=== PATIENT | male | born 1975 | race Caucasian/White ===

== ENCOUNTER 2016-12-03 16:00 | Inpatient (IN) | payer OTHER ==
--- NOTE | 2016-12-03 16:57 | ED PDOC ---
Arrival/HPI - General Chief Complaint: Lower Extremity Problem/Injury Time Seen by Provider: 12/03/16 16:01 Historian: Spouse - History of Present Illness Narrative History of Present Illness (Text): 12/03/16 16:54 Turkish speaking 41M w/no sig PMH evaluated for Left hip pain s/p fall. Pt was walking, slipped on water, hit his left hip on concrete. Pt unable to ambulate on limb, brought into ED by friend, via wheelchair. Pain is severe, constant, radiates to thigh. Denies trauma to other parts of his body, N/V/F/C, SOB, CP, WILSON, ab pain , other complaints. PMH: Denies PSH: R ankle sx All: NKDA SH: Denies tobacco, ETOH or illicit drug use PMD: None Past Medical History - Provider Review Nursing Documentation Reviewed: Yes - Infectious Disease Hx of Infectious Diseases: None - Psychiatric Hx Substance Use: No - Surgical History Hx Orthopedic Surgery: Yes - Anesthesia Hx Anesthesia Reactions: No Family/Social History - Physician Review Nursing Documentation Reviewed: Yes Family/Social History: No Known Family HX Smoking Status: Unknown If Ever Smoked Hx Alcohol Use: No Hx Substance Use: No Allergies/Home Meds Allergies/Adverse Reactions: Allergies No Known Allergies Allergy (Verified 12/03/16 16:46) Home Medications: Home Meds Medication Instructions Recorded Confirmed No Known Home Med 12/03/16 12/03/16 Review of Systems - Physician Review All systems were reviewed & negative as marked: Yes - Review of Systems Constitutional: Normal. absent: Fatigue Eyes: Normal. absent: Vision Changes ENT: Normal. absent: Sore Throat Respiratory: Normal Cardiovascular: Normal. absent: Chest Pain Gastrointestinal: Normal. absent: Abdominal Pain, Nausea, Vomiting Musculoskeletal: Normal. absent: Back Pain Skin: Normal. absent: Rash Neurological: Normal. absent: Headache Physical Exam Vital Signs Reviewed: Yes Vital Signs Temp Pulse Resp BP Pulse Ox 12/03/16 21:32 99.5 F 75 18 135/71 12/03/16 18:21 75 18 135/71 98 12/03/16 17:35 78 18 138/74 98 12/03/16 16:22 99.5 F 80 16 139/77 99 Temperature: Afebrile Pulse: Regular Respiratory Rate: Normal Appearance: Positive for: Non-Toxic, Uncomfortable Pain Distress: Moderate Mental Status: Positive for: Alert and Oriented X 3 - Systems Exam Head: Present: Atraumatic, Normocephalic Extroacular Muscles: Present: EOMI Mouth: Present: Moist Mucous Membranes Nose (External): Present: Atraumatic Neck: Present: Normal Range of Motion Respiratory/Chest: Present: Clear to Auscultation, Good Air Exchange. No: Respiratory Distress, Accessory Muscle Use Cardiovascular: Present: Regular Rate and Rhythm, Normal S1, S2. No: Murmurs Abdomen: Present: Normal Bowel Sounds. No: Tenderness, Distention, Peritoneal Signs Upper Extremity: Present: Normal Inspection. No: Cyanosis, Edema Lower Extremity: Present: Tenderness (over left greater trochanter), Neurovascularly Intact. No: Normal Inspection, Normal ROM (decreased Left leg passive raise due to pain), Swelling Neurological: Present: GCS=15, CN II-XII Intact, Speech Normal Skin: Present: Warm, Dry, Normal Color. No: Rashes Psychiatric: Present: Alert, Oriented x 3, Normal Insight, Normal Concentration Medical Decision Making ED Course and Treatment: 12/03/16 16:58 Pt seen/evaluated, will order pain medication, Left hip/pelvis x-ray for evaluation. 12/03/16 17:58 Pt w/L femoral neck fxr- will consult ortho. Call placed to Dr. Zamarripa. 12/03/16 20:03 Pt to be admitted to hospitalist team - medical billing specialist aware. 12/03/16 20:25 Dr. Zamarripa aware of pt, requesting CT of hip/pelvis. Imaging positive for L hip fracture. Plan for OR in AM with Dr. Zamarripa. 12/03/16 20:20 Spoke to family with Turkish speaking attending regarding the plan for admission & OR in AM as per Dr. Zamarripa. - Lab Interpretations Lab Results: 12/03/16 17:45 12/03/16 17:45 Lab Results 12/03/16 18:29: Blood Type AB POSITIVE, Antibody Screen Negative, BBK History Checked No verified bt 12/03/16 17:45: Sodium 138, Potassium 3.7, Chloride 99, Carbon Dioxide 28, Anion Gap 15, BUN 17, Creatinine 0.6 L, Est GFR ( Amer) > 60, Est GFR ( Non-Af Amer) > 60, Random Glucose 113 H, Calcium 9.2, Total Bilirubin 0.3, AST 34, ALT 33, Alkaline Phosphatase 63, Total Protein 7.0, Albumin 4.3, Globulin 2.8, Albumin/Globulin Ratio 1.5 12/03/16 17:45: PT 11.1, INR 1.03, APTT 25.1 12/03/16 17:45: WBC 10.3, RBC 4.57, Hgb 13.8 L, Hct 42.0, MCV 91.9, MCH 30.2, MCHC 32.9, RDW 12.7, Plt Count 187, MPV 11.8 H, Gran % 78.6 H, Lymph % (Auto) 14.3 L, [place] % (Auto) 6.4 H, Eos % (Auto) 0.5 L, Baso % (Auto) 0.2, Gran # 8.09 H, Lymph # 1.5, [place] # 0.7 H, Eos # 0.1, Baso # 0.02 - RAD Interpretation Radiology Orders: 12/03/16 16:51 HIP MIN 2V W/ PELVIS LT [RAD] Stat 12/03/16 18:37 HIP WITHOUT CONTRAST LEFT [CT] Stat 12/03/16 19:16 CXR [CHEST PORTABLE] [RAD] Stat - Medication Orders Current Medication Orders: Discontinued Medications Ketorolac Tromethamine (Toradol) 60 mg IM STAT STA Stop: 12/03/16 16:52 Last Admin: 12/03/16 17:00 Dose: 60 mg [facility] Pain Assessment Document 12/03/16 17:00 OCS (Rec: 12/03/16 17:21 [id number]) Pain Reassessment Is this a pain reassessment? Yes Sleep Is patient sleeping during reassessment? No Presence of Pain Presence of Pain Yes Pain Scale Used Pain Scale Used Numeric Location Left, Right or Bilateral Left Pain Location Body Site Hip Description Description Constant Intensity of Pain at present 10 Pain Behavior Moaning Guarding Irritability Withdrawal from Touch Rubbing Site Restlessness Facial Grimacing Aggravating Factors ADL's Changing Position IM Administration Charges Document 12/03/16 17:00 OCS (Rec: 12/03/16 17:21 [id number]) Injection Site MAR Injection Site Left Deltoid Charges for Administration # of IM Administrations 1 Re-Assess: MAR Pain Assessment Document 12/03/16 18:00 OCS (Rec: 12/03/16 18:40 OCS [facility] [id number][place] Pain Reassessment Is this a pain reassessment? Yes Sleep Is patient sleeping during reassessment? No Presence of Pain Presence of Pain Yes Pain Scale Used Pain Scale Used Numeric Location Left, Right or Bilateral Left Pain Location Body Site Hip Description Description Constant Pneumococcal Polyvalent Vaccine (Pneumovax 23 Vaccine) 0.5 ml IM .ONCE ONE Stop: 12/03/16 21:41 Disposition/Present on Arrival - Present on Arrival Any Indicators Present on Arrival: No History of DVT/PE: No History of Uncontrolled Diabetes: No Urinary Catheter: No History of Decub. Ulcer: No History Surgical Site Infection Following: None - Disposition Have Diagnosis and Disposition been Completed?: Yes Diagnosis: Fracture of femoral neck, left, closed Disposition: HOSPITALIZED Disposition Time: 20:03 Patient Plan: Admission Patient Problems: Current Active Problems Problem Status Onset Fracture of femoral neck, left, closed Acute Condition: FAIR
[2016-12-03 18:03] LABS: BASO # 0.02 K/mm3 (0.0-2.0); BASO % 0.2 % (0.0-3.0); EOS # 0.1 (0.0-0.7); EOS % 0.5 % (1.5-5.0); GRAN # 8.09 (1.4-6.5); GRAN % 78.6 % (50.0-68.0); LYMPH # 1.5 (1.2-3.4); LYMPH % 14.3 % (22.0-35.0); MEAN CELL VOLUME 91.9 fl (80.0-105.0); MEAN CORPUSCULAR HEMOGLOBIN 30.2 pg (25.0-35.0); MEAN CORPUSCULAR HGB CONC 32.9 g/dl (31.0-37.0); MEAN PLATELET VOLUME 11.8 fl (7.0-11.0); MONO # 0.7 (0.1-0.6); MONO % 6.4 % (1.0-6.0); RED CELL DISTRIBUTION WIDTH 12.7 % (11.5-14.5); WHITE BLOOD COUNT 10.3 10^3/ul (4.5-11.0)
[2016-12-03 18:15] LABS: ALB/GLOB RATIO 1.5 (1.1-1.8); ALKALINE PHOSPHATASE 63 U/L (38-126); ALT/SGPT 33 U/L (7-56); AST/SGOT 34 U/L (17-59); BILIRUBIN,TOTAL 0.3 mg/dL (0.2-1.3); BLOOD UREA NITROGEN 17 mg/dL (7-21); CALCIUM 9.2 mg/dL (8.4-10.5); CARBON DIOXIDE 28 mmol/L (21-33); CHLORIDE 99 mmol/L (98-107); GFR AFRICAN-AMERICAN > 60; GLUCOSE,RANDOM 113 mg/dL (70-110); POTASSIUM 3.7 mmol/L (3.6-5.0); SODIUM 138 mmol/L (132-148)
[2016-12-03 18:25] LABS: INR 1.03 (0.93-1.08); PARTIAL THROMBOPLASTIN TIME 25.1 Seconds (23.7-30.8)
--- NOTE | 2016-12-03 18:39 | RAD ---
PROCEDURE: Left Hip X-ray Radiographs. HISTORY: trauma COMPARISON: None. FINDINGS: BONES: Subcapital fracture proximal left femur. JOINTS: No evidence of subluxation or dislocation. SOFT TISSUES: Normal. OTHER FINDINGS: None. IMPRESSION: Acute subcapital fracture proximal left femur. No additional osseous, articular abnormalities identified. Please note: No preliminary report/ innterpretation of this examination provided by emergency department personnel.
--- NOTE | 2016-12-03 20:00 | CT ---
EXAM: CT Left Lower Extremity Without Intravenous Contrast, Hip EXAM DATE/TIME: 12/03/2016 6:37 PM CLINICAL HISTORY: The patient age is 41 years old and is male; Pain; Hip; Left; Additional info: Left hip fracture Facility exam id and description: Ct hipleft hip without contrast left TECHNIQUE: Axial computed tomography images of the left hip without intravenous contrast. All CT scans at this facility use one or more dose reduction techniques, viz.: automated exposure control; ma/kV adjustment per patient size (including targeted exams where dose is matched to indication; i.e. head); or iterative reconstruction technique. Coronal and sagittal reformatted images were created and reviewed. COMPARISON: DX - HIP W/WO PELVIS 2-3 VIEWS LT 12/03/2016 5:20:48 PM FINDINGS: Bones/joints: There is a fracture of the left femoral neck, with significant angulation of fracture fragments. No dislocation of the left hip joint. The remaining bones of the left hip are intact. There is narrowing of the left hip joint space, consistent with mild arthropathy. Soft tissues: There is soft tissue swelling lateral to the left hip. Vasculature: Calcifications are visualized within the left side of the pelvis, consistent with phleboliths. IMPRESSION: 1. There is a fracture of the left femoral neck, with significant angulation of fracture fragments. 2. There is soft tissue swelling lateral to the left hip.
[2016-12-03 21:40] VITALS: BMI 20.7
[2016-12-03] MEDS ORDERED: Pneumococcal 23-Valent Vaccine IM ONE (21:40)
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
[2016-12-03] MEDS ORDERED: Sodium Chloride 0.9% 1,000 ML IV SCH (23:15)
[2016-12-04 05:27] LABS: PH,URINE 6.5 (4.7-8.0); URINE BILIRUBIN NEGATIVE (NEGATIVE); URINE BLOOD TRACE-LYSED (NEGATIVE); URINE GLUCOSE (UA) NEGATIVE (NEGATIVE); URINE KETONE NEGATIVE (NEGATIVE); URINE LEUKOCYTE ESTERASE NEGATIVE Leu/uL (NEGATIVE); URINE PROTEIN NEGATIVE mg/dL (<30 mg/dL); URINE UROBILINOGEN 0.2 E.U./dL (<1 E.U./dL)
[2016-12-04] MEDS ORDERED: Bupivacaine 0.5% Inj(30mL) ONE (05:43)
[2016-12-04 05:45] LABS: URINE APPEARANCE CLEAR (CLEAR); URINE COLOR YELLOW (YELLOW)
[2016-12-04 05:49] LABS: URINE EPITHELIAL CELLS 0 - 2 /hpf (0-5); URINE WBC 0 - 2 /hpf (0-6)
[2016-12-04 06:06] LABS: HEMATOCRIT 42.6 % (42.0-52.0); MEAN CELL VOLUME 91.8 fl (80.0-105.0); MEAN CORPUSCULAR HEMOGLOBIN 30.2 pg (25.0-35.0); MEAN CORPUSCULAR HGB CONC 32.9 g/dl (31.0-37.0); MEAN PLATELET VOLUME 11.6 fl (7.0-11.0); RED CELL DISTRIBUTION WIDTH 12.9 % (11.5-14.5); WHITE BLOOD COUNT 7.4 10^3/ul (4.5-11.0)
[2016-12-04] MEDS ORDERED: Propofol 10 mg/ml Inj (20 ML) ONE (06:22)
[2016-12-04] MEDS ORDERED: Midazolam 2 MG/2 ML VIAL ONE (06:22)
[2016-12-04] MEDS ORDERED: Succinylcholine 200 mg/10 ml Inj IV ONE (06:22)
[2016-12-04 07:00] LABS: BLOOD UREA NITROGEN 12 mg/dL (7-21); CALCIUM 9.1 mg/dL (8.4-10.5); CARBON DIOXIDE 30 mmol/L (21-33); CHLORIDE 101 mmol/L (95-110); GFR AFRICAN-AMERICAN > 60; GLUCOSE,RANDOM 105 mg/dL (70-110); POTASSIUM 3.7 mmol/L (3.6-5.0); SODIUM 142 mmol/L (132-148)
[2016-12-04] MEDS ORDERED: Phenylephrine 10 mg/ml Inj ONE (07:40)
--- NOTE | 2016-12-04 08:08 | RAD ---
HISTORY: preop COMPARISON: No prior. FINDINGS: LUNGS: No active pulmonary disease. PLEURA: No significant pleural effusion identified, no pneumothorax apparent. CARDIOVASCULAR: Normal. OSSEOUS STRUCTURES: No significant abnormalities. VISUALIZED UPPER ABDOMEN: Normal. OTHER FINDINGS: None. IMPRESSION: No active disease.
[2016-12-04] MEDS ORDERED: Neostigmine Methylsulfate 3mg/3ml Syringe IV ONE (08:38)
--- NOTE | 2016-12-04 08:52 | PCM.SURG1 ---
Surgeon's Initial Post Op Note - Surgeon's Notes Surgeon: Sahra Zamarripa MD [place] Machine Operator: Victoria Pace [id number] Type of Anesthesia: General Endo Pre-Operative Diagnosis: Left hip displaced femoral neck fracture Operative Findings: Left hip displaced femoral neck fracture Post-Operative Diagnosis: Left hip displaced femoral neck fracture Operation Performed: Left hip femoral neck fracture closed reduction and internal fixation w/ 3 cannulated screws Specimen/Specimens Removed: specimen= none. complications= none. Implants= 3x cannulated partially threaded cancellous 7.3 mm screws measuring: inferior-100mm , superior anterior - 95mm, superior posterior - 100mm (all short thread) Estimated Blood Loss: EBL {In ML}: 10 Blood Products Given: N/A Drains Used: No Drains Post-Op Condition: Good Date of Surgery/Procedure: 12/04/16 Time of Surgery/Procedure: 08:52
[2016-12-04] MEDS ORDERED: HYDROmorphone 0.5 mg/0.5 ml ISec IVP PRN (08:56)
[2016-12-04] MEDS ORDERED: Lactated Ringer's 1,000 ML IV SCH (09:00)
--- NOTE | 2016-12-04 09:01 | RAD ---
PROCEDURE: Fluoroscopy up to 1 hour HISTORY: OR COMPARISON: TECHNIQUE: Fluoroscopy was provided in the operating room. Eight images were submitted FINDINGS: The study shows placement of 3 pins through a subcapital fracture of the left hip. IMPRESSION: As above
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
[2016-12-04] MEDS ORDERED: Oxycodone/Acetaminophen 5/325 mg Tab PO PRN (09:21)
[2016-12-04] MEDS ORDERED: HYDROmorphone 0.5 mg/0.5 ml ISec ONE (10:02)
--- NOTE | 2016-12-04 11:43 | CARD ---
APPROVED REPORT EKG Measurement Heart [id number] <Conclusion> Normal sinus rhythm Normal ECG
--- NOTE | 2016-12-04 12:05 | CP.PCM.PN ---
<Jose Guadalupe Worley - Last Filed: 12/04/16 16:00> Subjective - Date & Time of Evaluation Date of Evaluation: 12/04/16 Time of Evaluation: 11:00 - Subjective Subjective: Medicine Note Pt S&E at bedside L. Fem ORIF. Pt speaks Setswana. able to communicate of some pain in the left hip. Objective - Vital Signs/Intake and Output Vital Signs (last 24 hours): Temp Pulse Resp BP Pulse Ox 98.0 F 73 16 106/67 100 12/04/16 10:22 12/04/16 10:37 12/04/16 10:37 12/04/16 10:37 12/04/16 10:37 Intake and Output: 12/04/16 12/04/16 06:59 18:59 Intake Total 450 Balance 450 - Medications Medications: Current Medications Acetaminophen (Tylenol 325mg Tab) 650 mg PO Q4 PRN PRN Reason: Pain, Mild (1-3) Hydromorphone HCl (Dilaudid) 0.5 mg IVP Q4H PRN PRN Reason: Pain, severe (8-10) Metoclopramide HCl (Reglan) 10 mg IV ONCE PRN PRN Reason: Nausea/Vomiting Oxycodone/Acetaminophen (Percocet 5/325 Mg Tab) 2 tab PO Q4H PRN PRN Reason: Pain, severe (8-10) Stop: 12/07/16 09:22 Pantoprazole Sodium (Protonix Inj) 40 mg IVP DAILY FREDA Last Admin: 12/04/16 11:24 Dose: 40 mg - Labs Labs: 12/04/16 05:30 12/04/16 05:30 PT 11.1 Seconds (9.9-11.8) 12/03/16 17:45 INR 1.03 (0.93-1.08) 12/03/16 17:45 APTT 25.1 Seconds (23.7-30.8) 12/03/16 17:45 - Constitutional Appears: Non-toxic, No Acute Distress - Head Exam Head Exam: ATRAUMATIC - Eye Exam Eye Exam: EOMI. absent: Scleral icterus - ENT Exam ENT Exam: Mucous Membranes Moist - Respiratory Exam Respiratory Exam: NORMAL BREATHING PATTERN. absent: Accessory Muscle Use, Chest Wall Tenderness - Cardiovascular Exam Cardiovascular Exam: +S1, +S2. absent: Bradycardia, Tachycardia - GI/Abdominal Exam GI & Abdominal Exam: Soft. absent: Distended, Tenderness - Extremities Exam Additional comments: +2 pedal pulses B/L Left hip dressing C/D/I ice pack in place - Neurological Exam Neurological Exam: Alert, Awake - Skin Skin Exam: Normal Color, Warm Assessment and Plan - Assessment and Plan (Free Text) Assessment: 41 M w/ mechanical fall on left hip, S/P ORIF (pinning/screw fixation) of left hip Left Hip Fx s/p ORIF ORTHO: Dr. Zamarripa Pain control w/ Dilaudid Physical Therapy Consult AM Labs PPX PTX Lovenox Ancef q8 for 24hr post op (SCIP) Jose Guadalupe Worley PGY1 <Tara Pierre - Last Filed: 12/04/16 16:42> Objective - Vital Signs/Intake and Output Vital Signs (last 24 hours): Temp Pulse Resp BP Pulse Ox 98.0 F 73 16 106/67 100 12/04/16 10:22 12/04/16 10:37 12/04/16 10:37 12/04/16 10:37 12/04/16 10:37 Intake and Output: 12/04/16 12/04/16 06:59 18:59 Intake Total 450 Balance 450 - Medications Medications: Current Medications Acetaminophen (Tylenol 325mg Tab) 650 mg PO Q4 PRN PRN Reason: Pain, Mild (1-3) Enoxaparin Sodium (Lovenox) 40 mg SC DAILY FREDA PRN Reason: Protocol Hydromorphone HCl (Dilaudid) 0.5 mg IVP Q4H PRN PRN Reason: Pain, severe (8-10) Cefazolin Sodium (Ancef 1gm In Ns) 1 gm in 100 mls @ 100 mls/hr IVPB Q8 FREDA Stop: 12/05/16 14:59 Metoclopramide HCl (Reglan) 10 mg IV ONCE PRN PRN Reason: Nausea/Vomiting Oxycodone/Acetaminophen (Percocet 5/325 Mg Tab) 2 tab PO Q4H PRN PRN Reason: Pain, severe (8-10) Stop: 12/07/16 09:22 Pantoprazole Sodium (Protonix Inj) 40 mg IVP DAILY [facility] Last Admin: 12/04/16 11:24 Dose: 40 mg - Labs Labs: 12/04/16 05:30 12/04/16 05:30 PT 11.1 Seconds (9.9-11.8) 12/03/16 17:45 INR 1.03 (0.93-1.08) 12/03/16 17:45 APTT 25.1 Seconds (23.7-30.8) 12/03/16 17:45 Attending/Attestation - Attestation I have personally seen and examined this patient.: Yes I have fully participated in the care of the patient.: Yes I have reviewed all pertinent clinical information, including history, physical exam and plan: Yes Notes (Text): 12/04/16 16:40 41 year old male admitted with left pain pain after mechanical fall. He was found to have left femoral neck fracture. Orthopedics evaluation was appreciated and patient is s/p ORIF. Continue with analgesics for pain control and PT evaluation. Tara Pierre MD Hospitalist.
[2016-12-04] MEDS: HYDROmorphone 0.5 mg/0.5 ml ISec IVP PRN ×2 (17:14→23:52)
--- NOTE | 2016-12-04 20:48 | OP ---
PROCEDURE DATE: 12/04/2016 PREOPERATIVE DIAGNOSIS: Left hip displaced femoral neck fracture. POSTOPERATIVE DIAGNOSIS: Left hip displaced femoral neck fracture. PROCEDURE: Left hip displaced femoral neck fracture closed reduction and internal fixation with 3 cannulated screws. 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 ESTIMATED BLOOD LOSS: 10 mL. TYPE OF ANESTHESIA: General endotracheal anesthesia. DRAINS: None. COMPLICATIONS: None. SPECIMEN: None. IMPLANTS: Synthes cannulated partially threaded 7.3 mm cancellous screws, 3 in total measuring, 1. Inferior screw 100 mm 2. Superior anterior screw 95 mm 3. Superior posterior screw 100 mm, also I threaded them with washers. DISPOSITION: The patient was extubated and transferred back in stable condition and tolerated the procedure well. INDICATIONS FOR SURGERY: The patient is a 41-year-old male with no significant past medical history, who presents to the emergency room at [facility] on the evening of 12/03/2016 with left hip pain and inability to ambulate or bear weight on the left lower extremity for a few hours. The patient states that this is a work injury and he works at a [employer] locally. He slipped on water and landed on a concrete floor landing on his left hip while at work on 12/03/2016. He developed immediate 10/10 pain localized to the left hip and groin and was unable to tolerate any range of motion of the left hip or bear any weight on the left lower extremity. He was brought to the emergency room at [facility] by a friend in a wheelchair on 12/03/2016 in the evening. After evaluation by ER staff and review of imaging, he was diagnosed with a left hip displaced femoral neck fracture. Orthopedic consultation was placed and I started to manage the care of the patient remotely. I evaluated the patient as an inpatient and confirmed the above history in the quileute language of Yakut as he is Yakut speaking with no Cameroonian understanding or minimal Cameroonian understanding. He denied having any numbness or tingling in the left lower extremity or previous trauma to the left lower extremity or other musculoskeletal trauma after this fall, he denied LOC, he denied chest pain, shortness of breath, headache, nausea and vomiting, numbness and tingling, calf pain, weakness, or other musculoskeletal trauma. He was admitted to the Medical Service under the hospitalist and after adequate period of being n.p.o., he was taken to the OR for emergent closed reduction and internal fixation of the left hip displaced femoral neck fracture to preserve the left hip. He was indicated for left hip closed versus open reduction and internal fixation with 3 partially threaded cannulated screws. The risks, benefits, and alternatives of the procedure were discussed in length with the patient in his quileute language of Yakut for which I am fluent with the risk including not limited to infection, neurovascular damage, need for further surgery, failure of hardware, development of chronic pain and disability, development of blood clots including DVT and PE, need for conversion to a total hip replacement, screw pullout and breakthrough, inability to return to preinjury level of activity, anesthesia reactions including . After answering all of his questions, the patient stated that he understood the risks and wished to proceed with surgery. He was taken emergently to the OR in the neon molder of 12/04/2016 after an adequate period of being n.p.o. PROCEDURE IN DETAIL: The patient was identified in the preoperative holding area and the left hip was marked for surgery. Once again as described above, the risks, benefits, and alternatives of the procedure were discussed at length with the patient and informed consent was obtained. After brief discussion with the anesthesia staff, perioperative IV antibiotics and 2 g of Ancef were administered, the patient was taken to the operating room and placed on his bed. An initial timeout was done with the surgeon, anesthesia staff, and OR staff, all in agreement being operated on. General anesthesia was administered without difficulty or complications. The patient was then carefully transferred to the fracture table with all bony prominences and superficial neurovascular structures well padded. The left upper extremity was placed in well-padded egg crate padding and secured across his chest. The right upper extremity was placed on the armboard. The right lower extremity was placed in the Well-Leg mock and was well padded with egg crate padding on all superficial neurovascular structures. The left lower extremity was padded at the foot and ankle and secured to the traction boots. Fluoroscopic imaging was then brought to take prereduction AP and lateral biplanar imaging confirming the displaced femoral neck fracture on the left hip. A final timeout was done with the surgeon, anesthesia staff, and OR staff, being operated on. An attempt at a closed reduction was carried out that yielded satisfactory and acceptable anatomic reduction of the displaced femoral neck fracture after multiple maneuvers. Once it was confirmed, utilizing biplanar fluoroscopic imaging that our reduction of the femoral neck fracture was acceptable and a near anatomic reduction, the left hip was prepped and draped in standard sterile fashion. The anterior point for the cannulated screws was identified to be proximal to the level of the lesser trochanter to minimize the chance of iatrogenic fracture. We began with placement of the inferior screw. Using biplanar fluoroscopic imaging, the entry point for these screws were confirmed and a 3-cm incision was made at the skin, through the skin down subcutaneous tissue while maintaining good hemostasis down to level of the iliotibial fascia, which was sharply incised while access to the proximal lateral aspect of the femur. The inferior screw guide pin was placed center-center on the head through the lateral cortex along the inferior aspect of the femoral neck in good position, confirmed on biplanar fluoroscopic imaging. With the use of the gun barrel guide, the superior anterior and superior posterior pins were placed through the gun barrel guide. Measurements were taken while maintaining good tip-to-apex distance. The cannulated drill was advanced over the guidewires. Final screws were then placed. The inferior screw was a 7.3 mm cannulated partially threaded short thread cancellous screw measuring 100 mm, the superior anterior screw was the same measuring 95 mm, the superior posterior screw was the same measuring 100 mm, all screws were placed with washers. After final sequential tightening of the screws was carried out, final fluoroscopic imaging was taken confirming that the screws were in good position and good tip-to-apex distance was maintained with good compression strength maintained and good fixation strength maintained on the tactile testing with the screw medical driver. I was very happy with the construct and the bone purchase at that point in time. Final fluoroscopic images were taken and the wound was copiously irrigated. A #1 Vicryl suture was used for reapproximation of the iliotibial fascia, followed by 2.0 Vicryl suture for subcutaneous tissue followed by alvarado for skin. Sterile dressings were applied. The patient was then carefully transported back to his hospital bed where he was extubated successfully and transferred to PACU in stable condition and tolerated the procedure well. DISPOSITION: The patient will remain as an inpatient and work with physical therapy for at least 24 hours. He is young and healthy and will work with physical therapy to be initially toe touch weight bearing to the left lower extremity/nonweightbearing. He will be discharged once he is cleared by medical team. He will receive adequate pain control. He will be placed on Lovenox 40 mg subcutaneous once daily for at least 2 weeks starting postop day #1. He will follow up in my office at [facility] within 1 week after discharge. I will monitor his progress as an inpatient. Sahra Zamarripa MD
[2016-12-04] MEDS: ceFAZolin 1 gm in NS 1 GM/100 ML BAG IVPB SCH (22:45)
[2016-12-05] MEDS: ceFAZolin 1 gm in NS 1 GM/100 ML BAG IVPB SCH ×2 (05:57→14:46)
[2016-12-05 06:58] LABS: BASO # 0.01 K/mm3 (0.0-2.0); BASO % 0.1 % (0.0-3.0); EOS % 0.1 % (1.5-5.0); GRAN # 6.62 (1.4-6.5); GRAN % 66.3 % (50.0-68.0); HEMATOCRIT 41.1 % (42.0-52.0); LYMPH # 1.6 (1.2-3.4); LYMPH % 16.1 % (22.0-35.0); MEAN CELL VOLUME 91.9 fl (80.0-105.0); MEAN CORPUSCULAR HEMOGLOBIN 29.8 pg (25.0-35.0); MEAN CORPUSCULAR HGB CONC 32.4 g/dl (31.0-37.0); MEAN PLATELET VOLUME 11.6 fl (7.0-11.0); MONO # 1.7 (0.1-0.6); MONO % 17.4 % (1.0-6.0)
[2016-12-05 07:21] LABS: ALB/GLOB RATIO 1.4 (1.1-1.8); ALKALINE PHOSPHATASE 56 U/L (38-126); ALT/SGPT 31 U/L (7-56); AST/SGOT 37 U/L (17-59); BILIRUBIN,TOTAL 0.5 mg/dL (0.2-1.3); BLOOD UREA NITROGEN 9 mg/dL (7-21); CALCIUM 8.8 mg/dL (8.4-10.5); CARBON DIOXIDE 28 mmol/L (21-33); CHLORIDE 102 mmol/L (98-107); GFR AFRICAN-AMERICAN > 60; GLUCOSE,RANDOM 132 mg/dL (70-110); POTASSIUM 3.8 mmol/L (3.6-5.0); SODIUM 139 mmol/L (132-148); TOTAL PROTEIN 6.7 g/dL (5.8-8.3)
[2016-12-05] MEDS: Enoxaparin 40 mg Syringe SC SCH ×2 (09:12→11:55)
--- NOTE | 2016-12-05 13:49 | CP.PCM.PN ---
<Robert Pinto - Last Filed: 12/05/16 13:44> Subjective - Date & Time of Evaluation Date of Evaluation: 12/05/16 Time of Evaluation: 13:44 - Subjective Subjective: Pt seen and examined at bedside. Pt doing well overnight with no acute complaints. Pain is well controlled with medications. Denies CP, SOB, N/V/D, fever, chills. Objective - Vital Signs/Intake and Output Vital Signs (last 24 hours): Temp Pulse Resp BP Pulse Ox 99.9 F H 90 18 111/66 96 12/05/16 06:00 12/05/16 06:00 12/05/16 06:00 12/05/16 06:00 12/05/16 06:00 Intake and Output: 12/05/16 12/05/16 06:59 18:59 Intake Total 360 0 Output Total 800 Balance -440 0 - Medications Medications: Current Medications Acetaminophen (Tylenol 325mg Tab) 650 mg PO Q4 PRN PRN Reason: Pain, Mild (1-3) Enoxaparin Sodium (Lovenox) 40 mg SC DAILY [facility] PRN Reason: Protocol Last Admin: 12/05/16 11:55 Dose: Not Given Hydromorphone HCl (Dilaudid) 0.5 mg IVP Q4H PRN PRN Reason: Pain, severe (8-10) Last Admin: 12/04/16 23:52 Dose: 0.5 mg Cefazolin Sodium (Ancef 1gm In Ns) 1 gm in 100 mls @ 100 mls/hr IVPB Q8 [facility] Stop: 12/05/16 14:59 Last Admin: 12/05/16 05:57 Dose: 100 mls/hr Metoclopramide HCl (Reglan) 10 mg IV ONCE PRN PRN Reason: Nausea/Vomiting Oxycodone/Acetaminophen (Percocet 5/325 Mg Tab) 2 tab PO Q4H PRN PRN Reason: Pain, severe (8-10) Stop: 12/07/16 09:22 Pantoprazole Sodium (Protonix Inj) 40 mg IVP DAILY [facility] Last Admin: 12/05/16 09:14 Dose: 40 mg - Labs Labs: 12/05/16 06:51 12/05/16 06:51 PT 11.1 Seconds (9.9-11.8) 12/03/16 17:45 INR 1.03 (0.93-1.08) 12/03/16 17:45 APTT 25.1 Seconds (23.7-30.8) 12/03/16 17:45 - Constitutional Appears: Non-toxic, No Acute Distress - Head Exam Head Exam: ATRAUMATIC, NORMAL INSPECTION, NORMOCEPHALIC - ENT Exam ENT Exam: Mucous Membranes Moist, Normal Exam - Respiratory Exam Respiratory Exam: Clear to Ausculation Bilateral, NORMAL BREATHING PATTERN. absent: Rales, Rhonchi, Wheezes - Cardiovascular Exam Cardiovascular Exam: RRR, +S1, +S2 - GI/Abdominal Exam GI & Abdominal Exam: Soft, Normal Bowel Sounds. absent: Tenderness - Extremities Exam Extremities Exam: absent: Calf Tenderness, Pedal Edema Additional comments: Left hip surgical site bandaged. Clean, dry, and intact. Mild edema noted. - Neurological Exam Neurological Exam: Alert, Awake, Oriented x3 - Psychiatric Exam Psychiatric exam: Normal Affect, Normal Mood - Skin Skin Exam: Intact, Normal Color, Warm Assessment and Plan - Assessment and Plan (Free Text) Plan: 41 y/o M with no PMH presents after mechanical fall and s/p ORIF of left hip. Pt maintained on pain medication and continue to work with physical therapy. 1. Left Hip fracture s/p ORIF Pain control with Dilaudid and percocet Tylenol for fever Reglan for nausea Physical Therapy 2. PPX Lovenox Protonix Blair, PGY-2 <Tara Pierre - Last Filed: 12/05/16 14:59> Objective - Vital Signs/Intake and Output Vital Signs (last 24 hours): Temp Pulse Resp BP Pulse Ox 99.9 F H 90 18 111/66 96 12/05/16 06:00 12/05/16 06:00 12/05/16 06:00 12/05/16 06:00 12/05/16 06:00 Intake and Output: 12/05/16 12/05/16 06:59 18:59 Intake Total 360 0 Output Total 800 Balance -440 0 - Medications Medications: Current Medications Acetaminophen (Tylenol 325mg Tab) 650 mg PO Q4 PRN PRN Reason: Pain, Mild (1-3) Enoxaparin Sodium (Lovenox) 40 mg SC DAILY [facility] PRN Reason: Protocol Last Admin: 12/05/16 11:55 Dose: Not Given Hydromorphone HCl (Dilaudid) 0.5 mg IVP Q4H PRN PRN Reason: Pain, severe (8-10) Last Admin: 12/05/16 14:47 Dose: 0.5 mg Cefazolin Sodium (Ancef 1gm In Ns) 1 gm in 100 mls @ 100 mls/hr IVPB Q8 [facility] Stop: 12/05/16 14:59 Last Admin: 12/05/16 14:46 Dose: 100 mls/hr Metoclopramide HCl (Reglan) 10 mg IV ONCE PRN PRN Reason: Nausea/Vomiting Oxycodone/Acetaminophen (Percocet 5/325 Mg Tab) 2 tab PO Q4H PRN PRN Reason: Pain, severe (8-10) Stop: 12/07/16 09:22 Pantoprazole Sodium (Protonix Inj) 40 mg IVP DAILY [facility] Last Admin: 12/05/16 09:14 Dose: 40 mg - Labs Labs: 12/05/16 06:51 12/05/16 06:51 PT 11.1 Seconds (9.9-11.8) 12/03/16 17:45 INR 1.03 (0.93-1.08) 12/03/16 17:45 APTT 25.1 Seconds (23.7-30.8) 12/03/16 17:45 Attending/Attestation - Attestation I have personally seen and examined this patient.: Yes I have fully participated in the care of the patient.: Yes I have reviewed all pertinent clinical information, including history, physical exam and plan: Yes Notes (Text): 12/05/16 14:58 41 year old male admitted with left pain pain after mechanical fall. He was found to have left femoral neck fracture. He was see by orthopedics and is s/p ORIF POD #1. Continue with analgesics for pain control. Continue with physical therapy; currently recommending HwS. Case was discussed with therapeutic case manager and social studies department chair today. Tara Pierre MD Hospitalist.
[2016-12-05] MEDS: HYDROmorphone 0.5 mg/0.5 ml ISec IVP PRN (14:47)
[2016-12-06 07:03] LABS: BASO # 0.02 K/mm3 (0.0-2.0); BASO % 0.2 % (0.0-3.0); EOS % 0.4 % (1.5-5.0); GRAN # 6.75 (1.4-6.5); GRAN % 70.8 % (50.0-68.0); HEMATOCRIT 41.7 % (42.0-52.0); LYMPH # 1.4 (1.2-3.4); LYMPH % 14.7 % (22.0-35.0); MEAN CELL VOLUME 91.6 fl (80.0-105.0); MEAN CORPUSCULAR HEMOGLOBIN 29.5 pg (25.0-35.0); MEAN CORPUSCULAR HGB CONC 32.1 g/dl (31.0-37.0); MEAN PLATELET VOLUME 11.6 fl (7.0-11.0); MONO # 1.3 (0.1-0.6); MONO % 13.9 % (1.0-6.0); RED CELL DISTRIBUTION WIDTH 12.9 % (11.5-14.5); WHITE BLOOD COUNT 9.5 10^3/ul (4.5-11.0)
[2016-12-06 07:44] LABS: ALB/GLOB RATIO 1.3 (1.1-1.8); ALKALINE PHOSPHATASE 52 U/L (38-126); ALT/SGPT 27 U/L (7-56); AST/SGOT 35 U/L (17-59); BILIRUBIN,TOTAL 0.6 mg/dL (0.2-1.3); BLOOD UREA NITROGEN 11 mg/dL (7-21); CALCIUM 9.3 mg/dL (8.4-10.5); CARBON DIOXIDE 31 mmol/L (21-33); CHLORIDE 100 mmol/L (98-107); GFR AFRICAN-AMERICAN > 60; GLUCOSE,RANDOM 147 mg/dL (70-110); POTASSIUM 4.1 mmol/L (3.6-5.0); SODIUM 140 mmol/L (132-148)
[2016-12-06] MEDS: Enoxaparin 40 mg Syringe SC SCH (09:47)
--- NOTE | 2016-12-06 12:25 | CP.PCM.PN ---
<Jose Guadalupe Worley - Last Filed: 12/06/16 12:21> Subjective - Date & Time of Evaluation Date of Evaluation: 12/06/16 Time of Evaluation: 09:30 - Subjective Subjective: Medicine Note Patient S&E at bedside at AM. No acute events overnight. Pain is well controlled. +OOB w/ Physical therapy. Dressing C/D/I. Denies F/C CP SOB N/V/D Objective - Vital Signs/Intake and Output Vital Signs (last 24 hours): Temp Pulse Resp BP Pulse Ox 99 F 86 18 117/76 98 12/06/16 08:36 12/06/16 08:36 12/06/16 08:36 12/06/16 08:36 12/06/16 08:36 Intake and Output: 12/06/16 12/06/16 06:59 18:59 Intake Total 550 Output Total 800 Balance -250 - Medications Medications: Current Medications Acetaminophen (Tylenol 325mg Tab) 650 mg PO Q4 PRN PRN Reason: Pain, Mild (1-3) Enoxaparin Sodium (Lovenox) 40 mg SC DAILY [facility] PRN Reason: Protocol Last Admin: 12/06/16 09:47 Dose: 40 mg Hydromorphone HCl (Dilaudid) 0.5 mg IVP Q4H PRN PRN Reason: Pain, severe (8-10) Last Admin: 12/05/16 14:47 Dose: 0.5 mg Metoclopramide HCl (Reglan) 10 mg IV ONCE PRN PRN Reason: Nausea/Vomiting Oxycodone/Acetaminophen (Percocet 5/325 Mg Tab) 2 tab PO Q4H PRN PRN Reason: Pain, severe (8-10) Stop: 12/07/16 09:22 Pantoprazole Sodium (Protonix Inj) 40 mg IVP DAILY [facility] Last Admin: 12/06/16 09:48 Dose: 40 mg - Labs Labs: 12/06/16 06:40 12/06/16 06:40 PT 11.1 Seconds (9.9-11.8) 12/03/16 17:45 INR 1.03 (0.93-1.08) 12/03/16 17:45 APTT 25.1 Seconds (23.7-30.8) 12/03/16 17:45 - Constitutional Appears: Non-toxic, No Acute Distress - Head Exam Head Exam: ATRAUMATIC - Eye Exam Eye Exam: EOMI. absent: Scleral icterus - ENT Exam ENT Exam: Mucous Membranes Moist - Respiratory Exam Respiratory Exam: NORMAL BREATHING PATTERN. absent: Accessory Muscle Use, Respiratory Distress - Cardiovascular Exam Cardiovascular Exam: +S1, +S2. absent: Bradycardia, Tachycardia - GI/Abdominal Exam GI & Abdominal Exam: Soft, Normal Bowel Sounds. absent: Distended, Tenderness, Rebound - Extremities Exam Extremities Exam: absent: Calf Tenderness Additional comments: Left Hip dressing C/D/i - Neurological Exam Neurological Exam: Alert, Awake, Oriented x3 - Skin Skin Exam: Normal Color, Warm Assessment and Plan - Assessment and Plan (Free Text) Assessment: 41 y/o M with no PMH presents after mechanical fall and s/p ORIF of left hip POD #2. Pt maintained on pain medication and continue to work with physical therapy. Left Hip fracture s/p ORIF Pain control with Dilaudid and percocet Tylenol for fever Reglan for nausea c/w Physical Therapy- Focus to be weight bearing and ambulate up steps PPX Lovenox Protonix Jose Guadalupe Worley PGY1 <Tara Pierre - Last Filed: 12/06/16 14:57> Objective - Vital Signs/Intake and Output Vital Signs (last 24 hours): Temp Pulse Resp BP Pulse Ox 99 F 86 18 117/76 98 12/06/16 08:36 12/06/16 08:36 12/06/16 08:36 12/06/16 08:36 12/06/16 08:36 Intake and Output: 12/06/16 12/06/16 06:59 18:59 Intake Total 550 Output Total 800 Balance -250 - Medications Medications: Current Medications Acetaminophen (Tylenol 325mg Tab) 650 mg PO Q4 PRN PRN Reason: Pain, Mild (1-3) Enoxaparin Sodium (Lovenox) 40 mg SC DAILY [facility] PRN Reason: Protocol Last Admin: 12/06/16 09:47 Dose: 40 mg Hydromorphone HCl (Dilaudid) 0.5 mg IVP Q4H PRN PRN Reason: Pain, severe (8-10) Last Admin: 12/05/16 14:47 Dose: 0.5 mg Metoclopramide HCl (Reglan) 10 mg IV ONCE PRN PRN Reason: Nausea/Vomiting Oxycodone/Acetaminophen (Percocet 5/325 Mg Tab) 2 tab PO Q4H PRN PRN Reason: Pain, severe (8-10) Stop: 12/07/16 09:22 Last Admin: 12/06/16 14:06 Dose: 2 tab Pantoprazole Sodium (Protonix Inj) 40 mg IVP DAILY [facility] Last Admin: 12/06/16 09:48 Dose: 40 mg - Labs Labs: 12/06/16 06:40 12/06/16 06:40 PT 11.1 Seconds (9.9-11.8) 12/03/16 17:45 INR 1.03 (0.93-1.08) 12/03/16 17:45 APTT 25.1 Seconds (23.7-30.8) 12/03/16 17:45 Attending/Attestation - Attestation I have personally seen and examined this patient.: Yes I have fully participated in the care of the patient.: Yes I have reviewed all pertinent clinical information, including history, physical exam and plan: Yes Notes (Text): 12/06/16 14:56 41 year old male admitted with left pain pain after mechanical fall. He was found to have left femoral neck fracture on CT scan. He was seen by orthopedics and is s/p ORIF POD #2. Continue with analgesics for pain control. Continue with physical therapy and stairs training for d/c planning. Tara Pierre MD Hospitalist.
[2016-12-07] MEDS: Pantoprazole 40 mg EC Tab PO SCH (06:00)
[2016-12-07 06:57] LABS: BASO # 0.01 K/mm3 (0.0-2.0); BASO % 0.1 % (0.0-3.0); EOS # 0.2 (0.0-0.7); EOS % 2.6 % (1.5-5.0); GRAN # 4.43 (1.4-6.5); GRAN % 58.6 % (50.0-68.0); HEMATOCRIT 41.7 % (42.0-52.0); LYMPH # 2.1 (1.2-3.4); LYMPH % 28.1 % (22.0-35.0); MEAN CELL VOLUME 91.6 fl (80.0-105.0); MEAN CORPUSCULAR HEMOGLOBIN 30.1 pg (25.0-35.0); MEAN CORPUSCULAR HGB CONC 32.9 g/dl (31.0-37.0); MEAN PLATELET VOLUME 11.9 fl (7.0-11.0); MONO # 0.8 (0.1-0.6); MONO % 10.6 % (1.0-6.0); RED CELL DISTRIBUTION WIDTH 12.7 % (11.5-14.5); WHITE BLOOD COUNT 7.6 10^3/ul (4.5-11.0)
[2016-12-07 07:24] LABS: ALB/GLOB RATIO 1.2 (1.1-1.8); ALKALINE PHOSPHATASE 53 U/L (38-126); ALT/SGPT 57 U/L (7-56); AST/SGOT 44 U/L (17-59); BILIRUBIN,TOTAL 0.5 mg/dL (0.2-1.3); BLOOD UREA NITROGEN 13 mg/dL (7-21); CALCIUM 9.3 mg/dL (8.4-10.5); CARBON DIOXIDE 32 mmol/L (21-33); CHLORIDE 98 mmol/L (98-107); GFR AFRICAN-AMERICAN > 60; GLUCOSE,RANDOM 119 mg/dL (70-110); POTASSIUM 3.8 mmol/L (3.6-5.0); SODIUM 140 mmol/L (132-148); TOTAL PROTEIN 7.1 g/dL (5.8-8.3)
[2016-12-07] MEDS: Enoxaparin 40 mg Syringe SC SCH (09:34)
[2016-12-07] MEDS ORDERED: Oxycodone/Acetaminophen 5/325 mg Tab PO PRN (11:47)
--- NOTE | 2016-12-07 16:23 | CP.PCM.PN ---
<Jose Guadalupe Worley - Last Filed: 12/07/16 16:25> Subjective - Date & Time of Evaluation Date of Evaluation: 12/07/16 Time of Evaluation: 10:30 - Subjective Subjective: Medicine Progress note Pt S&E at bedside this AM. No acute events overnight. During encounter pt was OOB into chair. Pt complaining of continued pain in his Left hip. Minimal weight bearing. Physical therapy actively working with patient. Denies F/C CP/ SOB N/V/D Objective - Vital Signs/Intake and Output Vital Signs (last 24 hours): Temp Pulse Resp BP Pulse Ox 99.2 F 81 20 124/79 100 12/07/16 08:27 12/07/16 08:27 12/07/16 08:27 12/07/16 08:27 12/07/16 08:27 Intake and Output: 12/07/16 12/07/16 06:59 18:59 Intake Total 360 1080 Output Total 600 1300 Balance -240 -220 - Medications Medications: Current Medications Acetaminophen (Tylenol 325mg Tab) 650 mg PO Q4 PRN PRN Reason: Pain, Mild (1-3) Enoxaparin Sodium (Lovenox) 40 mg SC DAILY [facility] PRN Reason: Protocol Last Admin: 12/07/16 09:34 Dose: 40 mg Oxycodone/Acetaminophen (Percocet 5/325 Mg Tab) 1 tab PO Q4H PRN PRN Reason: Pain, moderate (4-7) Stop: 12/10/16 11:48 Pantoprazole Sodium (Protonix Ec Tab) 40 mg PO 0600 [facility] - Labs Labs: 12/07/16 06:41 12/07/16 06:41 PT 11.1 Seconds (9.9-11.8) 12/03/16 17:45 INR 1.03 (0.93-1.08) 12/03/16 17:45 APTT 25.1 Seconds (23.7-30.8) 12/03/16 17:45 - Constitutional Appears: Non-toxic, No Acute Distress - Head Exam Head Exam: ATRAUMATIC, NORMAL INSPECTION - Eye Exam Eye Exam: EOMI. absent: Scleral icterus - ENT Exam ENT Exam: Mucous Membranes Moist - Respiratory Exam Respiratory Exam: NORMAL BREATHING PATTERN. absent: Accessory Muscle Use, Respiratory Distress - Cardiovascular Exam Cardiovascular Exam: +S1, +S2. absent: Bradycardia, Tachycardia - GI/Abdominal Exam GI & Abdominal Exam: Soft. absent: Tenderness - Extremities Exam Additional comments: +2 pulses b/L Left Hip Dressing C/D/I no strikethrough No pedal edema or swelling - Neurological Exam Neurological Exam: Alert, Awake, Oriented x3 - Psychiatric Exam Psychiatric exam: Flat Affect - Skin Skin Exam: Normal Color Assessment and Plan - Assessment and Plan (Free Text) Assessment: 41M w/ left femoral neck fracture post mechanical fall s/p Left Hip ORIF POD#3 Left Hip fracture s/p ORIF Pain control on percocet Tylenol for fever Reglan for nausea c/w Physical Therapy- Focus to be weight bearing and ambulate up steps Continue with PT over the weekend PPX Lovenox Protonix Jose Guadalupe Worley PGY1 <Tara Pierre A - Last Filed: 12/07/16 17:01> Objective - Vital Signs/Intake and Output Vital Signs (last 24 hours): Temp Pulse Resp BP Pulse Ox 99.2 F 81 20 124/79 100 12/07/16 08:27 12/07/16 08:27 12/07/16 08:27 12/07/16 08:27 12/07/16 08:27 Intake and Output: 12/07/16 12/07/16 06:59 18:59 Intake Total 360 1080 Output Total 600 1300 Balance -240 -220 - Medications Medications: Current Medications Acetaminophen (Tylenol 325mg Tab) 650 mg PO Q4 PRN PRN Reason: Pain, Mild (1-3) Enoxaparin Sodium (Lovenox) 40 mg SC DAILY [facility] PRN Reason: Protocol Last Admin: 12/07/16 09:34 Dose: 40 mg Oxycodone/Acetaminophen (Percocet 5/325 Mg Tab) 1 tab PO Q4H PRN PRN Reason: Pain, moderate (4-7) Stop: 12/10/16 11:48 Pantoprazole Sodium (Protonix Ec Tab) 40 mg PO 0600 [facility] - Labs Labs: 12/07/16 06:41 12/07/16 06:41 PT 11.1 Seconds (9.9-11.8) 12/03/16 17:45 INR 1.03 (0.93-1.08) 12/03/16 17:45 APTT 25.1 Seconds (23.7-30.8) 12/03/16 17:45 Attending/Attestation - Attestation I have personally seen and examined this patient.: Yes I have fully participated in the care of the patient.: Yes I have reviewed all pertinent clinical information, including history, physical exam and plan: Yes Notes (Text): 12/07/16 16:59 41 year old male admitted with left pain pain after mechanical fall. CT scan showed left femoral neck fracture. He was seen by orthopedics and is s/p ORIF POD #3. Continue with percocet prn for pain control. Continue with physical therapy for stairs training. Tara Pierre MD Hospitalist.
[2016-12-08] MEDS: Pantoprazole 40 mg EC Tab PO SCH (07:00)
[2016-12-08 07:18] LABS: HEMATOCRIT 40.8 % (42.0-52.0); MEAN CELL VOLUME 92.3 fl (80.0-105.0); MEAN CORPUSCULAR HEMOGLOBIN 29.9 pg (25.0-35.0); MEAN CORPUSCULAR HGB CONC 32.4 g/dl (31.0-37.0); MEAN PLATELET VOLUME 11.9 fl (7.0-11.0); RED CELL DISTRIBUTION WIDTH 12.7 % (11.5-14.5)
[2016-12-08 07:39] LABS: BLOOD UREA NITROGEN 14 mg/dL (7-21); CALCIUM 9.4 mg/dL (8.4-10.5); CARBON DIOXIDE 36 mmol/L (21-33); CHLORIDE 96 mmol/L (98-107); GFR AFRICAN-AMERICAN > 60; GLUCOSE,RANDOM 97 mg/dL (70-110); POTASSIUM 4.3 mmol/L (3.6-5.0); SODIUM 141 mmol/L (132-148)
[2016-12-08] MEDS: Enoxaparin 40 mg Syringe SC SCH (09:09)
--- NOTE | 2016-12-08 10:36 | CP.PCM.PN ---
<MariahKrystinan - Last Filed: 12/08/16 10:40> Subjective - Date & Time of Evaluation Date of Evaluation: 12/08/16 Time of Evaluation: 08:34 - Subjective Subjective: Patient was seen and examined at bedside. Per nursing there were no acute events overnight. The patient denies any chest pain, shortness of breath, nausea,vomiting, changes in vision, abdominal pain, syncopal episodes or any other complaints. Objective - Vital Signs/Intake and Output Vital Signs (last 24 hours): Temp Pulse Resp BP Pulse Ox 98.5 F 87 18 123/87 97 12/08/16 06:00 12/08/16 06:00 12/08/16 06:00 12/08/16 06:00 12/08/16 06:00 Intake and Output: 12/08/16 12/08/16 06:59 18:59 Intake Total 420 Output Total 400 Balance 20 - Medications Medications: Current Medications Acetaminophen (Tylenol 325mg Tab) 650 mg PO Q4 PRN PRN Reason: Pain, Mild (1-3) Enoxaparin Sodium (Lovenox) 40 mg SC DAILY [facility] PRN Reason: Protocol Last Admin: 12/08/16 09:09 Dose: 40 mg Oxycodone/Acetaminophen (Percocet 5/325 Mg Tab) 1 tab PO Q4H PRN PRN Reason: Pain, moderate (4-7) Stop: 12/10/16 11:48 Pantoprazole Sodium (Protonix Ec Tab) 40 mg PO 0600 [facility] Last Admin: 12/08/16 07:00 Dose: 40 mg - Labs Labs: 12/08/16 06:30 12/08/16 06:30 PT 11.1 Seconds (9.9-11.8) 12/03/16 17:45 INR 1.03 (0.93-1.08) 12/03/16 17:45 APTT 25.1 Seconds (23.7-30.8) 12/03/16 17:45 - Head Exam Head Exam: ATRAUMATIC, NORMAL INSPECTION, NORMOCEPHALIC - Eye Exam Eye Exam: EOMI, Normal appearance, PERRL. absent: Periorbital tenderness Pupil Exam: NORMAL ACCOMODATION, PERRL. absent: Irregular, Miosis, Unequal - ENT Exam ENT Exam: Mucous Membranes Moist, Normal Exam. absent: Normal Oropharynx, TM's Normal Bilaterally - Neck Exam Neck Exam: Full ROM, Normal Inspection. absent: Lymphadenopathy, Thyromegaly - Respiratory Exam Respiratory Exam: Clear to Ausculation Bilateral, NORMAL BREATHING PATTERN. absent: Chest Wall Tenderness, Decreased Breath Sounds, Prolonged Expiratory Phase, Stridor - Cardiovascular Exam Cardiovascular Exam: REGULAR RHYTHM, RRR, +S1, +S2. absent: Gallop, Rubs - GI/Abdominal Exam GI & Abdominal Exam: Soft, Normal Bowel Sounds. absent: Rigid, Tenderness, Hyperactive Bowel Sounds - Back Exam Back Exam: NORMAL INSPECTION. absent: CVA tenderness (L), CVA tenderness (R), paraspinal tenderness - Neurological Exam Neurological Exam: Alert, Awake, CN II-XII Intact, Normal Gait, Oriented x3. absent: Altered - Psychiatric Exam Psychiatric exam: Normal Affect, Normal Mood. absent: Depressed, Flat Affect - Skin Skin Exam: Dry, Intact, Normal Color. absent: Pallor, Pallor Assessment and Plan - Assessment and Plan (Free Text) Assessment: 41M w/ left femoral neck fracture post mechanical fall s/p Left Hip ORIF POD#3 Plan: Left Hip fracture s/p ORIF Day#4 Continue percocet for pain control. Tylenol for fever Reglan for nausea c/w Physical Therapy- Focus to be weight bearing and ambulate up steps. Patient currently can do four steps. Will continue to monitor closely. Continue with PT over the weekend PPX Lovenox Protonix <Tara Pierre - Last Filed: 12/08/16 19:02> Objective - Vital Signs/Intake and Output Vital Signs (last 24 hours): Temp Pulse Resp BP Pulse Ox 99.3 F 81 19 115/78 97 12/08/16 18:06 12/08/16 18:06 12/08/16 18:06 12/08/16 18:06 12/08/16 18:06 Intake and Output: 12/08/16 12/09/16 18:59 06:59 Intake Total 600 Output Total 700 Balance -100 - Medications Medications: Current Medications Acetaminophen (Tylenol 325mg Tab) 650 mg PO Q4 PRN PRN Reason: Pain, Mild (1-3) Enoxaparin Sodium (Lovenox) 40 mg SC DAILY [facility] PRN Reason: Protocol Last Admin: 12/08/16 09:09 Dose: 40 mg Oxycodone/Acetaminophen (Percocet 5/325 Mg Tab) 1 tab PO Q4H PRN PRN Reason: Pain, moderate (4-7) Stop: 12/10/16 11:48 Pantoprazole Sodium (Protonix Ec Tab) 40 mg PO 0600 [facility] Last Admin: 12/08/16 07:00 Dose: 40 mg - Labs Labs: 12/08/16 06:30 12/08/16 06:30 PT 11.1 Seconds (9.9-11.8) 12/03/16 17:45 INR 1.03 (0.93-1.08) 12/03/16 17:45 APTT 25.1 Seconds (23.7-30.8) 12/03/16 17:45 Attending/Attestation - Attestation I have personally seen and examined this patient.: Yes I have fully participated in the care of the patient.: Yes I have reviewed all pertinent clinical information, including history, physical exam and plan: Yes Notes (Text): 12/08/16 19:01 41 year old male admitted with left pain pain after mechanical fall. He was found to have left femoral neck fracture. He was seen by orthopedics and is s/p ORIF POD #4. Continue with percocet prn for pain control. He requires more physical therapy for stairs training for d/c planning. Tara Pierre MD Hospitalist.
[2016-12-09] MEDS: Pantoprazole 40 mg EC Tab PO SCH (05:32)
--- NOTE | 2016-12-09 09:05 | CP.PCM.PN ---
<MariahKrystinan - Last Filed: 12/09/16 09:06> Subjective - Date & Time of Evaluation Date of Evaluation: 12/09/16 Time of Evaluation: 07:03 - Subjective Subjective: Patient seen and examined at bedside this morning. Per nursing there were no acute events overnight. The patient is still reporting right hip pain and difficulty ambulating. The patient denies any chest pain, shortness of breath, lightheadedness , dizziness, sore throat, cough, fevers, chills, or any other complaints. Objective - Vital Signs/Intake and Output Vital Signs (last 24 hours): Temp Pulse Resp BP Pulse Ox 98.3 F 80 98 H 125/85 18 L 12/09/16 06:00 12/09/16 06:00 12/09/16 06:00 12/09/16 06:00 12/09/16 06:00 Intake and Output: 12/09/16 12/09/16 06:59 18:59 Intake Total 240 Output Total 400 Balance -160 - Medications Medications: Current Medications Acetaminophen (Tylenol 325mg Tab) 650 mg PO Q4 PRN PRN Reason: Pain, Mild (1-3) Enoxaparin Sodium (Lovenox) 40 mg SC DAILY [facility] PRN Reason: Protocol Last Admin: 12/08/16 09:09 Dose: 40 mg Oxycodone/Acetaminophen (Percocet 5/325 Mg Tab) 1 tab PO Q4H PRN PRN Reason: Pain, moderate (4-7) Stop: 12/10/16 11:48 Pantoprazole Sodium (Protonix Ec Tab) 40 mg PO 0600 [facility] Last Admin: 12/09/16 05:32 Dose: 40 mg - Labs Labs: 12/08/16 06:30 12/08/16 06:30 PT 11.1 Seconds (9.9-11.8) 12/03/16 17:45 INR 1.03 (0.93-1.08) 12/03/16 17:45 APTT 25.1 Seconds (23.7-30.8) 12/03/16 17:45 - Head Exam Head Exam: ATRAUMATIC, NORMAL INSPECTION, NORMOCEPHALIC - Eye Exam Eye Exam: EOMI, Normal appearance, PERRL Pupil Exam: NORMAL ACCOMODATION, PERRL. absent: Irregular, Unequal - ENT Exam ENT Exam: Mucous Membranes Moist, Normal Exam, Normal Oropharynx. absent: TM's Normal Bilaterally - Neck Exam Neck Exam: Normal Inspection. absent: Lymphadenopathy, Thyromegaly - Respiratory Exam Respiratory Exam: Clear to Ausculation Bilateral, NORMAL BREATHING PATTERN. absent: Accessory Muscle Use, Chest Wall Tenderness, Prolonged Expiratory Phase , Respiratory Distress - Cardiovascular Exam Cardiovascular Exam: REGULAR RHYTHM, +S1, +S2 - GI/Abdominal Exam GI & Abdominal Exam: Soft, Normal Bowel Sounds. absent: Rigid, Tenderness, Hyperactive Bowel Sounds - Back Exam Back Exam: NORMAL INSPECTION. absent: CVA tenderness (L), CVA tenderness (R), paraspinal tenderness - Neurological Exam Neurological Exam: Abnormal Gait, Alert, Awake, CN II-XII Intact, Oriented x3. absent: Normal Gait - Psychiatric Exam Psychiatric exam: Normal Affect, Normal Mood - Skin Skin Exam: Dry, Intact Assessment and Plan - Assessment and Plan (Free Text) Assessment: 41M w/ left femoral neck fracture post mechanical fall s/p Left Hip ORIF POD#4 Plan: Left Hip fracture s/p ORIF Day#4 Continue percocet for pain control. Tylenol for fever Reglan for nausea c/w Physical Therapy- Focus to be weight bearing and ambulate up steps. Patient currently can do four steps. Will continue to monitor closely. Continue with PT over the weekend. Patient expected to be discharged to TCU on Saturday. PPX Lovenox Protonix <Tara Pierre - Last Filed: 12/09/16 18:31> Objective - Vital Signs/Intake and Output Vital Signs (last 24 hours): Temp Pulse Resp BP Pulse Ox 98.3 F 80 98 H 125/85 18 L 12/09/16 06:00 12/09/16 06:00 12/09/16 06:00 12/09/16 06:00 12/09/16 06:00 Intake and Output: 12/09/16 12/09/16 06:59 18:59 Intake Total 240 600 Output Total 400 Balance -160 600 - Medications Medications: Current Medications Acetaminophen (Tylenol 325mg Tab) 650 mg PO Q4 PRN PRN Reason: Pain, Mild (1-3) Enoxaparin Sodium (Lovenox) 40 mg SC DAILY [facility] PRN Reason: Protocol Last Admin: 12/09/16 09:55 Dose: 40 mg Oxycodone/Acetaminophen (Percocet 5/325 Mg Tab) 1 tab PO Q4H PRN PRN Reason: Pain, moderate (4-7) Stop: 12/10/16 11:48 Pantoprazole Sodium (Protonix Ec Tab) 40 mg PO 0600 [facility] Last Admin: 12/09/16 05:32 Dose: 40 mg - Labs Labs: 12/08/16 06:30 12/08/16 06:30 PT 11.1 Seconds (9.9-11.8) 12/03/16 17:45 INR 1.03 (0.93-1.08) 12/03/16 17:45 APTT 25.1 Seconds (23.7-30.8) 12/03/16 17:45 Attending/Attestation - Attestation I have personally seen and examined this patient.: Yes I have fully participated in the care of the patient.: Yes I have reviewed all pertinent clinical information, including history, physical exam and plan: Yes Notes (Text): 12/09/16 18:29 41 year old male admitted with left pain pain after mechanical fall. He was found to have left femoral neck fracture on CT scan. He was seen by orthopedics and is s/p ORIF POD #5. Continue with percocet prn for pain control. Continue with physical therapy for stairs training. D/c planning home with walker once cleared by PT. Tara Pierre MD Hospitalist.
[2016-12-09] MEDS: Enoxaparin 40 mg Syringe SC SCH (09:55)
[2016-12-10] MEDS: Pantoprazole 40 mg EC Tab PO SCH (06:18)
[2016-12-10] MEDS: Enoxaparin 40 mg Syringe SC SCH (09:27)
--- NOTE | 2016-12-10 11:09 | CP.PCM.DIS ---
<Robert Pinto - Last Filed: 12/10/16 11:53> Provider - Provider Date of Admission: 12/03/16 19:25 Attending physician: Misti Hernandez MD Primary care physician: NO PRIMARY CARE PROVIDER Consults: Misael Henriquez Time Spent in preparation of Discharge (in minutes): 45 Diagnosis - Discharge Diagnosis (1) Fracture of femoral neck, left, closed Status: Resolved Hospital Course - Lab Results Lab Results: Most Recent Lab Values WBC 6.0 10^3/ul (4.5-11.0) D 12/08/16 06:30 RBC 4.42 10^6/uL (3.5-6.1) 12/08/16 06:30 Hgb 13.2 g/dL (14.0-18.0) L 12/08/16 06:30 Hct 40.8 % (42.0-52.0) L 12/08/16 06:30 MCV 92.3 fl (80.0-105.0) 12/08/16 06:30 MCH 29.9 pg (25.0-35.0) 12/08/16 06:30 MCHC 32.4 g/dl (31.0-37.0) 12/08/16 06:30 RDW 12.7 % (11.5-14.5) 12/08/16 06:30 Plt Count 253 10^3/uL (120.0-450.0) 12/08/16 06:30 MPV 11.9 fl (7.0-11.0) H 12/08/16 06:30 Gran % 58.6 % (50.0-68.0) 12/07/16 06:41 Lymph % (Auto) 28.1 % (22.0-35.0) 12/07/16 06:41 Glenn % (Auto) 10.6 % (1.0-6.0) H 12/07/16 06:41 Eos % (Auto) 2.6 % (1.5-5.0) 12/07/16 06:41 Baso % (Auto) 0.1 % (0.0-3.0) 12/07/16 06:41 Gran # 4.43 (1.4-6.5) 12/07/16 06:41 Lymph # 2.1 (1.2-3.4) 12/07/16 06:41 Glenn # 0.8 (0.1-0.6) H 12/07/16 06:41 Eos # 0.2 (0.0-0.7) 12/07/16 06:41 Baso # 0.01 K/mm3 (0.0-2.0) 12/07/16 06:41 PT 11.1 Seconds (9.9-11.8) 12/03/16 17:45 INR 1.03 (0.93-1.08) 12/03/16 17:45 APTT 25.1 Seconds (23.7-30.8) 12/03/16 17:45 Sodium 141 mmol/L (132-148) 12/08/16 06:30 Potassium 4.3 mmol/L (3.6-5.0) 12/08/16 06:30 Chloride 96 mmol/L (98-107) L 12/08/16 06:30 Carbon Dioxide 36 mmol/L (21-33) H 12/08/16 06:30 Anion Gap 13 (10-20) 12/08/16 06:30 BUN 14 mg/dL (7-21) 12/08/16 06:30 Creatinine 0.7 mg/dL (0.8-1.5) L 12/08/16 06:30 Est GFR ( Amer) > 60 12/08/16 06:30 Est GFR (Non-Af Amer) > 60 12/08/16 06:30 POC Glucose (mg/dL) 126 mg/dL (65-110) H 12/04/16 22:19 Random Glucose 97 mg/dL (70-110) 12/08/16 06:30 Calcium 9.4 mg/dL (8.4-10.5) 12/08/16 06:30 Total Bilirubin 0.5 mg/dL (0.2-1.3) 12/07/16 06:41 AST 44 U/L (17-59) 12/07/16 06:41 ALT 57 U/L (7-56) H 12/07/16 06:41 Alkaline Phosphatase 53 U/L (38-126) 12/07/16 06:41 Total Protein 7.1 g/dL (5.8-8.3) 12/07/16 06:41 Albumin 3.9 g/dL (3.0-4.8) 12/07/16 06:41 Globulin 3.2 gm/dL 12/07/16 06:41 Albumin/Globulin Ratio 1.2 (1.1-1.8) 12/07/16 06:41 Urine Color Yellow (YELLOW) 12/04/16 04:20 Urine Appearance Clear (CLEAR) 12/04/16 04:20 Urine pH 6.5 (4.7-8.0) 12/04/16 04:20 Ur Specific [place] 1.010 (1.005-1.035) 12/04/16 04:20 Urine Protein Negative mg/dL (<30 mg/dL) 12/04/16 04:20 Urine Glucose (UA) Negative mg/dL (NEGATIVE) 12/04/16 04:20 Urine Ketones Negative mg/dL (NEGATIVE) 12/04/16 04:20 Urine Blood Trace-lysed (NEGATIVE) H 12/04/16 04:20 Urine Nitrate Negative (NEGATIVE) 12/04/16 04:20 Urine Bilirubin Negative (NEGATIVE) 12/04/16 04:20 Urine Urobilinogen 0.2 E.U./dL (<1 E.U./dL) 12/04/16 04:20 Ur Leukocyte Esterase Negative Kyle/uL (NEGATIVE) 12/04/16 04:20 Urine RBC 1 - 3 /hpf (0-2) 12/04/16 04:20 Urine WBC 0 - 2 /hpf (0-6) 12/04/16 04:20 Ur Epithelial Cells 0 - 2 /hpf (0-5) 12/04/16 04:20 Blood Type AB POSITIVE 12/03/16 18:29 Blood Type Confirm AB POSITIVE 12/03/16 19:55 Antibody Screen Negative 12/03/16 18:29 BBK History Checked No verified bt 12/03/16 18:29 - Hospital Course Hospital Course: 41 y/o M with no PMH presents with left hip pain after mechanical fall at work. Pt slipped on water at work and fell on his left side. Pt came to the hospital and had a CT scan of the left hip which demonstrated a left femoral neck fracture. Pt was seen by Dr. Henriquez who performed a left ORIF. Pt was placed on percocet for pain control. Pt worked with physical therapy for further strengthening. Pt discharged once cleared by physical therapy. Pt will follow with [facility] for further issues. Pt instructed with help of informatics manager. Discharge Exam - Head Exam Head Exam: ATRAUMATIC, NORMAL INSPECTION, NORMOCEPHALIC - Eye Exam Eye Exam: EOMI, Normal appearance - Respiratory Exam Respiratory Exam: NORMAL BREATHING PATTERN, UNREMARKABLE - Cardiovascular Exam Cardiovascular Exam: RRR, +S1, +S2 - GI/Abdominal Exam GI & Abdominal Exam: Normal Bowel Sounds, Soft. absent: Unremarkable - Extremities Exam Additional comments: Left hip surgical site clean. No drainage. - Neurological Exam Neurological exam: Alert, CN II-XII Intact, Oriented x3 - Psychiatric Exam Psychiatric exam: Normal Affect, Normal Mood - Skin Skin Exam: Intact, Normal Color, Warm Discharge Plan - Follow Up Plan Condition: FAIR Disposition: HOME/ ROUTINE Instructions: Pain Management After Surgery (DC), ORIF of Hip Fracture (DC) Additional Instructions: Follow up with PMD within 1 week. Follow up with [facility] for further health issues. Follow up with Dr. Henriquez for further hip issues. Use Tylenol for Hip pain. Referrals: Sahra Meza MD [Staff Provider] - Jose Maria Obrien MD [Medical Doctor] - PCP,NO [Primary Care Provider] - Follow up with primary <Misti Hernandez - Last Filed: 12/11/16 12:12> Provider - Provider Date of Admission: 12/03/16 19:25 Attending physician: Misti Hernandez MD Primary care physician: NO PRIMARY CARE PROVIDER Hospital Course - Lab Results Lab Results: Most Recent Lab Values WBC 6.0 10^3/ul (4.5-11.0) D 12/08/16 06:30 RBC 4.42 10^6/uL (3.5-6.1) 12/08/16 06:30 Hgb 13.2 g/dL (14.0-18.0) L 12/08/16 06:30 Hct 40.8 % (42.0-52.0) L 12/08/16 06:30 MCV 92.3 fl (80.0-105.0) 12/08/16 06:30 MCH 29.9 pg (25.0-35.0) 12/08/16 06:30 MCHC 32.4 g/dl (31.0-37.0) 12/08/16 06:30 RDW 12.7 % (11.5-14.5) 12/08/16 06:30 Plt Count 253 10^3/uL (120.0-450.0) 12/08/16 06:30 MPV 11.9 fl (7.0-11.0) H 12/08/16 06:30 Gran % 58.6 % (50.0-68.0) 12/07/16 06:41 Lymph % (Auto) 28.1 % (22.0-35.0) 12/07/16 06:41 Glenn % (Auto) 10.6 % (1.0-6.0) H 12/07/16 06:41 Eos % (Auto) 2.6 % (1.5-5.0) 12/07/16 06:41 Baso % (Auto) 0.1 % (0.0-3.0) 12/07/16 06:41 Gran # 4.43 (1.4-6.5) 12/07/16 06:41 Lymph # 2.1 (1.2-3.4) 12/07/16 06:41 Glenn # 0.8 (0.1-0.6) H 12/07/16 06:41 Eos # 0.2 (0.0-0.7) 12/07/16 06:41 Baso # 0.01 K/mm3 (0.0-2.0) 12/07/16 06:41 PT 11.1 Seconds (9.9-11.8) 12/03/16 17:45 INR 1.03 (0.93-1.08) 12/03/16 17:45 APTT 25.1 Seconds (23.7-30.8) 12/03/16 17:45 Sodium 141 mmol/L (132-148) 12/08/16 06:30 Potassium 4.3 mmol/L (3.6-5.0) 12/08/16 06:30 Chloride 96 mmol/L (98-107) L 12/08/16 06:30 Carbon Dioxide 36 mmol/L (21-33) H 12/08/16 06:30 Anion Gap 13 (10-20) 12/08/16 06:30 BUN 14 mg/dL (7-21) 12/08/16 06:30 Creatinine 0.7 mg/dL (0.8-1.5) L 12/08/16 06:30 Est GFR ( Amer) > 60 12/08/16 06:30 Est GFR (Non-Af Amer) > 60 12/08/16 06:30 POC Glucose (mg/dL) 126 mg/dL (65-110) H 12/04/16 22:19 Random Glucose 97 mg/dL (70-110) 12/08/16 06:30 Calcium 9.4 mg/dL (8.4-10.5) 12/08/16 06:30 Total Bilirubin 0.5 mg/dL (0.2-1.3) 12/07/16 06:41 AST 44 U/L (17-59) 12/07/16 06:41 ALT 57 U/L (7-56) H 12/07/16 06:41 Alkaline Phosphatase 53 U/L (38-126) 12/07/16 06:41 Total Protein 7.1 g/dL (5.8-8.3) 12/07/16 06:41 Albumin 3.9 g/dL (3.0-4.8) 12/07/16 06:41 Globulin 3.2 gm/dL 12/07/16 06:41 Albumin/Globulin Ratio 1.2 (1.1-1.8) 12/07/16 06:41 Urine Color Yellow (YELLOW) 12/04/16 04:20 Urine Appearance Clear (CLEAR) 12/04/16 04:20 Urine pH 6.5 (4.7-8.0) 12/04/16 04:20 Ur Specific [place] 1.010 (1.005-1.035) 12/04/16 04:20 Urine Protein Negative mg/dL (<30 mg/dL) 12/04/16 04:20 Urine Glucose (UA) Negative mg/dL (NEGATIVE) 12/04/16 04:20 Urine Ketones Negative mg/dL (NEGATIVE) 12/04/16 04:20 Urine Blood Trace-lysed (NEGATIVE) H 12/04/16 04:20 Urine Nitrate Negative (NEGATIVE) 12/04/16 04:20 Urine Bilirubin Negative (NEGATIVE) 12/04/16 04:20 Urine Urobilinogen 0.2 E.U./dL (<1 E.U./dL) 12/04/16 04:20 Ur Leukocyte Esterase Negative Kyle/uL (NEGATIVE) 12/04/16 04:20 Urine RBC 1 - 3 /hpf (0-2) 12/04/16 04:20 Urine WBC 0 - 2 /hpf (0-6) 12/04/16 04:20 Ur Epithelial Cells 0 - 2 /hpf (0-5) 12/04/16 04:20 Blood Type AB POSITIVE 12/03/16 18:29 Blood Type Confirm AB POSITIVE 12/03/16 19:55 Antibody Screen Negative 12/03/16 18:29 BBK History Checked No verified bt 12/03/16 18:29 Attending/Attestation - Attestation I have personally seen and examined this patient.: Yes I have fully participated in the care of the patient.: Yes I have reviewed all pertinent clinical information, including history, physical exam and plan: Yes Notes (Text): 12/11/16 12:07 Patient was seen and examined with medical advisor. Agreed with resident assessment and plan. 41 yrs old male ,SP ORIF for left femur neck fracture, Patient was getting physical therapy here in hospital after surgery.He was cleared today by Physical therapy for discharge. He will be discharged home and will follow up with Orthopedic. Management plan was discussed in detail with patient and .[employer] phone line was used. Education was provided. 12/11/16 12:10
[2016-12-10 11:30] VITALS: BP 118/79; PULSE 70; RESP 18; TEMP 98.6; O2SAT 96
== END 2016-12-10 16:45 | disposition home or self-care (01) | DRG 211 ==
LOC: EDBD 16:00 → ED 16:00 → ERH 19:25 → 3RSO 22:16
PROVIDERS: ADMIT Hospitalist; ATTEND Internal Medicine
PROC: 0QS734Z Reposition Left Upper Femur with Internal Fixation Device, Percutaneous Approach (ICD-10-PCS; principal; 2016-12-04 06:00)
DX: S72.002A Fracture of unspecified part of neck of left femur, initial encounter for closed fracture (principal); W01.0XXA Fall on same level from slipping, tripping and stumbling without subsequent striking against object, initial encounter; Y93.01 Activity, walking, marching and hiking; Y92.89 Other specified places as the place of occurrence of the external cause; Y99.0 Civilian activity done for income or pay